=== PATIENT | female | born 1955 | race Caucasian/White ===

== ENCOUNTER → 2020-11-03 | Outpatient (CLI) | payer MEDICARE ==
[~2020-11-03] MED LIST: AMLO-150 PO; APIX5TAB PO; ASPI81TA45 PO; CHOL10003 PO; CLON0.2T PO; CLON0.2T10 PO; EZET10TA70 PO; FENO200C PO; GLIP10TA13 PO; INSU100V13 SC; LIRA0.6P SC; METF500T17 PO; PIOG15TA66 PO; VALS1TAB29 PO; VIT1TABL32 PO; clonidine PO
== END | disposition home or self-care (01) ==
LOC: CVU 13:23
PROVIDERS: ATTEND Registered Nurse
DX: I36.1 Nonrheumatic tricuspid (valve) insufficiency (principal); I26.09 Other pulmonary embolism with acute cor pulmonale; I27.20 Pulmonary hypertension, unspecified; J96.11 Chronic respiratory failure with hypoxia; E11.9 Type 2 diabetes mellitus without complications; E78.5 Hyperlipidemia, unspecified; I11.9 Hypertensive heart disease without heart failure; Z86.16 Personal history of COVID-19; Z79.01 Long term (current) use of anticoagulants
CPT/HCPCS: 93306

== ENCOUNTER → 2020-12-23 | Outpatient (CLI) | payer MEDICARE ==
[~2020-12-23] MED LIST changes: +REGADENOSON 0.4 MG/5 ML SYRINGE ONE
== END | disposition home or self-care (01) ==
LOC: CFH 12:30
PROVIDERS: ATTEND Internal Medicine Cardiovascular Disease
DX: R94.31 Abnormal electrocardiogram [ECG] [EKG] (principal)
CPT/HCPCS: 78452; 93017; A9502; J2785